=== PATIENT | male | born 1970 | race Asian ===

== ENCOUNTER 2017-07-06 13:33 | Emergency (ER) | payer MEDICAID ==
[~2017-07-06] VITALS: Ht 177.8 cm; Wt 65.0 kg
[~2017-07-06 13:33] MED LIST: AMLO10TA4 PO; HYDR25TA6 PO; LISI-167 PO; LOSA1TAB19 PO; METO25TA35 PO; MULT1TAB9 PO
[2017-07-06] MEDS ORDERED: ASPIRIN 81 MG TABLET CHEW ONE (14:06)
[2017-07-06] MEDS ORDERED: SODIUM CHLORIDE 0.9% 1,000ML IVBOLUS ONE (14:30)
[2017-07-06] MEDS ORDERED: ASPIRIN 81 MG TABLET CHEW PO ONE (14:30)
[2017-07-06 14:50] LABS: HEMATOCRIT 41.8 % (39.2-51.8); WHITE BLOOD COUNT 7.1 x10^3/uL (3.4-10)
[2017-07-06 14:58] LABS: ASPARTATE AMINO TRANSFERASE 23 U/L (15-37); BLOOD UREA NITROGEN 15 mg/dL (7-18)
[2017-07-06 15:05] LABS: IS PT STATUS REG ER OR PRE ER? YES
[2017-07-06 15:54] VITALS: BP 133/86
[2017-07-06] MEDS ORDERED: LOSARTAN 50MG TABLET PO ONE (16:23)
[2017-07-06] MEDS ORDERED: METOPROLOL TARTRATE 25 MG TABLET PO STA (16:23)
[2017-07-06] MEDS ORDERED: HYDROCHLOROTHIAZIDE 12.5 MG CAPSULE PO ONE (16:30)
[2017-07-06] MEDS ORDERED: AMLODIPINE 5 MG TABLET PO ONE (16:30)
[2017-07-06] MEDS ORDERED: METOPROLOL TARTRATE 50 MG TABLET ONE (16:35)
== END 2017-07-06 17:06 | disposition home or self-care (01) ==
LOC: ED 16:39
DX: R07.9 Chest pain, unspecified (principal); Z76.0 Encounter for issue of repeat prescription; R55 Syncope and collapse; I10 Essential (primary) hypertension; F17.200 Nicotine dependence, unspecified, uncomplicated
CPT/HCPCS: 36415; 71010; 80053; 84484; 85025; 93005; 96360; 99285; J7030

== ENCOUNTER 2017-07-11 04:40 | Emergency (ER) | payer MEDICAID ==
[~2017-07-11] VITALS: Ht 175.3 cm; Wt 65.0 kg
[2017-07-11 04:41] VITALS: BP 142/96
== END 2017-07-11 05:26 | disposition home or self-care (01) ==
LOC: ED 05:00
DX: S01.111A Laceration without foreign body of right eyelid and periocular area, initial encounter (principal); I10 Essential (primary) hypertension; Y04.8XXA Assault by other bodily force, initial encounter; Y93.89 Activity, other specified; Y92.89 Other specified places as the place of occurrence of the external cause; Y99.8 Other external cause status; Y92.410 Unspecified street and highway as the place of occurrence of the external cause
CPT/HCPCS: 99282

== ENCOUNTER 2017-07-28 11:51 | Emergency (ER) | payer MEDICAID ==
[~2017-07-28] VITALS: Ht 177.8 cm; Wt 65.0 kg
[2017-07-28] MEDS ORDERED: SODIUM CHLORIDE FLUSH 10ML SYR IVF ONE (12:00)
[2017-07-28] MEDS ORDERED: SODIUM CHLORIDE 0.9% 1,000ML IVBOLUS ONE (12:00)
[2017-07-28 12:16] LABS: HEMOGLOBIN 13.5 g/dL (13.7-18.0); WHITE BLOOD COUNT 10.5 x10^3/uL (3.4-10)
[2017-07-28 12:28] LABS: BLOOD UREA NITROGEN 32 mg/dL (7-18)
[2017-07-28 13:12] VITALS: BP 116/65
== END 2017-07-28 13:57 | disposition home or self-care (01) ==
LOC: ED 12:12
DX: I95.2 Hypotension due to drugs (principal); E86.0 Dehydration; N28.9 Disorder of kidney and ureter, unspecified; I10 Essential (primary) hypertension; I25.2 Old myocardial infarction
CPT/HCPCS: 36415; 80048; 82040; 85025; 93005; 99285; J7030

== ENCOUNTER 2017-08-04 13:54 | Emergency (ER) | payer OTHER, MEDICAID ==
[~2017-08-04] VITALS: Ht 182.9 cm; Wt 68.0 kg
[2017-08-04] MEDS ORDERED: DIPH,PERTUSS(ACELL),TET VAC/PF 0.5 ML IM-VACC ONE ×2 (14:30→16:45)
[2017-08-04 16:07] VITALS: BP 128/70
== END 2017-08-04 17:43 | disposition home or self-care (01) ==
LOC: ED 14:08
DX: S00.03XA Contusion of scalp, initial encounter (principal); S40.211A Abrasion of right shoulder, initial encounter; S60.511A Abrasion of right hand, initial encounter; S80.212A Abrasion, left knee, initial encounter; S80.211A Abrasion, right knee, initial encounter; S20.112A Abrasion of breast, left breast, initial encounter; S19.9XXA Unspecified injury of neck, initial encounter; Y04.8XXA Assault by other bodily force, initial encounter; Y93.89 Activity, other specified; Y99.8 Other external cause status; Y92.89 Other specified places as the place of occurrence of the external cause
CPT/HCPCS: 70450; 70486; 72125; 90471; 90715

== ENCOUNTER 2018-02-11 04:42 | Emergency (ER) | payer MEDICAID ==
[~2018-02-11] VITALS: Ht 175.3 cm; Wt 50.0 kg
[2018-02-11 05:45] VITALS: BP 147/104
== END 2018-02-11 05:47 | disposition home or self-care (01) ==
LOC: ED 05:28
DX: K08.89 Other specified disorders of teeth and supporting structures (principal); K14.0 Glossitis; F17.200 Nicotine dependence, unspecified, uncomplicated; I10 Essential (primary) hypertension; Z88.0 Allergy status to penicillin
CPT/HCPCS: 99283

== ENCOUNTER 2018-02-12 14:10 | Emergency (ER) | payer MEDICAID ==
[~2018-02-12] VITALS: Ht 175.3 cm; Wt 65.4 kg
[2018-02-12 14:13] VITALS: BP 121/77
== END 2018-02-12 15:44 | disposition home or self-care (01) ==
LOC: ED 15:30
DX: K02.9 Dental caries, unspecified (principal); I25.2 Old myocardial infarction; F17.200 Nicotine dependence, unspecified, uncomplicated
CPT/HCPCS: 99282